=== PATIENT | male | born 1995 | race Caucasian/White ===

== ENCOUNTER 2017-11-23 18:55 | Emergency (ER) | payer MEDICAID ==
[2017-11-23 19:05] VITALS: BP 128/72
--- NOTE | 2017-11-23 19:54 | ER Document Report ---
HPI - HPI Patient complains to provider of: groin rash Pain Level: Denies Context: Patient is a 22-year-old male comes emergency department for chief complaint of a rash on his groin area. He states he noticed it while shaving. He denies dysuria, discharge, other locations of rash, fever or chills, or any other symptoms. He did have unprotected intercourse within the past several weeks. Patient denies that the rash is itchy or painful, it is asymptomatic. Past Medical History - General Information source: Patient - Social History Smoking Status: Never Smoker Lives with: Alone Family History: Reviewed & Not Pertinent - Medical History Medical History: Negative Surgical Hx: Negative - Immunizations Immunizations up to date: Yes Hx Diphtheria, Pertussis, Tetanus Vaccination: Yes Vertical Provider Document - CONSTITUTIONAL General Appearance: WD/WN, No Apparent Distress - INFECTION CONTROL TRAVEL OUTSIDE OF THE [place] IN LAST 30 DAYS: No - HEENT HEENT: Atraumatic, Normocephalic - NECK Neck: Normal Inspection - RESPIRATORY Respiratory: Breath Sounds Normal, No Respiratory Distress - CARDIOVASCULAR Cardiovascular: Regular Rate, Regular Rhythm - GI/ABDOMEN Gastrointestinal: Abdomen Soft, Abdomen Non-Tender - REPRODUCTIVE Male Genitalia: Normal Inspection - No rash over the genitals, no swelling, no tenderness, no discharge, no wounds - BACK Back: Normal Inspection - DERM Integumentary: Rash - Scattered papular pinkish umbilicated lesions over the groin area and lower abdomen, small area of excoriation, no induration, fluctuance, or other abnormality noted Course - Re-evaluation Re-evalutation: Patient with an unremarkable genital exam except for a rash of the groin which is consistent with molluscum contagiosum. I discussed this with patient, advised that this would most likely resolve in time especially since it is a mild case, patient requesting treatment for this. Provided with treatment, referred to dermatology. 11/24/17 Patient was going to be checked for gonorrhea and Chlamydia on request, he was supposed to leave a urine specimen before discharge and then was going to be called with the results. I checked back and found that there was no pending results, lab did not have a urine to perform this with, patient had already been discharged, I tried calling patient at the contact number he left and he did not answer. Very low suspicion of gonorrhea chlamydia based on his examination and symptoms. - Vital Signs Vital signs: Temp Pulse Resp BP Pulse Ox 98.5 F 90 16 128/72 H 100 11/23/17 19:04 11/23/17 19:04 11/23/17 19:04 11/23/17 19:04 11/23/17 19:04 Discharge - Discharge Clinical Impression: Rash Condition: Stable Disposition: HOME, SELF-CARE Additional Instructions: Your examination is consistent with molluscum contagiosum, this is a viral rash/ reaction, this usually fades gradually over time. This can be treated with the prescribed medication as well. Follow-up with dermatology for additional management if desired. See referral. Return to the emergency department for any concerning or worsening symptoms including pain, spreading rash, fever, or any other concerning or worsening symptoms. Prescriptions: Podofilox [Condylox] 3.5 ml TP ASDIR PRN #1 bottle PRN Reason: Referrals: TREVA CORADO DO [ACTIVE STAFF] - Follow up as needed
== END 2017-11-23 20:09 | disposition home or self-care (01) ==
LOC: ER 18:55
DX: R21 Rash and other nonspecific skin eruption (principal)
CPT/HCPCS: 99283

== ENCOUNTER 2018-02-09 14:28 | Emergency (ER) | payer SELFPAY ==
[2018-02-09 14:37] VITALS: BP 135/66
--- NOTE | 2018-02-09 15:07 | ER Document Report ---
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 Patient states his lesions began when he shaved his pubic hair. He states in the past that when he was treated for condyloma, the lesions never really went away. He denies any pain. He denies any ulcerations. He denies any penile discharge. 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 TRAVEL OUTSIDE OF THE [place] IN LAST 30 DAYS: No - HPI Onset: Last week Onset/Duration: Gradual Quality of pain: No pain Severity: None Pain Level: Denies Associated Symptoms: denies: Chest pain, Fever, Shortness of breath Exacerbated by: Denies Relieved by: Denies Similar symptoms previously: Yes Recently seen / treated by doctor: Yes - Related Data Smoking: Non-smoker Frequency of alcohol use: None Drug Abuse: None Allergies/Adverse Reactions: Penicillins Allergy (Verified 02/09/18 14:31) Past Medical History - General Information source: Patient - Social History Cigarette use (# per day): No Chew tobacco use (# tins/day): No Frequency of alcohol use: None Drug Abuse: None Lives with: Family Family history: None - Medical History Medical History: Negative Renal/ Medical History: Denies: Hx Peritoneal Dialysis Surgical Hx: Negative - Immunizations Immunizations up to date: Yes Hx Diphtheria, Pertussis, Tetanus Vaccination: Yes Review of Systems - Review of Systems Constitutional: denies: Chills, Fever EENT: No symptoms reported Cardiovascular: No symptoms reported Respiratory: No symptoms reported Gastrointestinal: No symptoms reported Genitourinary: No symptoms reported Male Genitourinary: See HPI Musculoskeletal: No symptoms reported Skin: No symptoms reported Hematologic/Lymphatic: No symptoms reported Neurological/Psychological: No symptoms reported Physical Exam - Vital signs Vitals: Temp Pulse Resp BP Pulse Ox 98.8 F 84 20 135/66 H 100 02/09/18 14:35 02/09/18 14:35 02/09/18 14:35 02/09/18 14:35 02/09/18 14:35 Notes: Physical exam: GENERAL: A 2-year-old man, alert and oriented 3, no acute distress HEAD: Atraumatic, normocephalic. EYES: Pupils equal round and reactive to light, extraocular movements intact, sclera anicteric, conjunctiva are normal. ENT: TMs normal, nares patent, oropharynx clear without exudates. Moist mucous membranes. NECK: Normal range of motion, supple LUNGS: Breath sounds clear to auscultation bilaterally and equal. No wheezes rales or rhonchi. ABDOMEN: Soft, normoactive bowel sounds. No tenderness to palpation. No guarding, no rebound. No masses appreciated. Genitalia: Patient has multiple follicular type lesions in the suprapubic area at the base of hair follicles. He has a few areas on the base of the penis. There is no condylomatous lesions per se. There is no ulcerations. Testes 2 were normal. EXTREMITIES: Normal range of motion, no pitting or edema. No clubbing or cyanosis. NEUROLOGICAL: Cranial nerves II through XII grossly intact. Normal speech, moving all extremities. PSYCH: Normal mood, normal affect. SKIN: Warm, Dry, normal turgor, no rashes or lesions noted. Course - Vital Signs Vital signs: Temp Pulse Resp BP Pulse Ox 98.8 F 84 20 135/66 H 100 02/09/18 14:35 02/09/18 14:35 02/09/18 14:35 02/09/18 14:35 02/09/18 14:35 Doctor's Discharge - Discharge Clinical Impression: Folliculitis Condition: Stable Disposition: HOME, SELF-CARE Additional Instructions: As we discussed, a urine test for STD was sent today it will take several hours to come back. We will call you if it turns positive. You can always call the ER for the results at [phone] and you can inquire about the lab results. The ER always calls when there is an blood test (i.e. positive). They usually will not call back when it is normal. Otherwise, take the antibiotics as prescribed. You could try [employer] which is a website that has discounted antibiotics from local pharmacies. I would also follow-up with the health department which is a good resource for penile lesions. Prescriptions: Doxycycline Hyclate 100 mg PO BID #20 capsule Referrals: [facility] [NO LOCAL MD] - Follow up as needed
[2018-02-09 17:10] LABS: CHLAM PCR NOT DETECTED (NOT DETECT); GON PCR NOT DETECTED (NOT DETECT)
== END 2018-02-09 15:21 | disposition home or self-care (01) ==
LOC: ER 14:28
DX: L73.9 Follicular disorder, unspecified (principal); Z88.0 Allergy status to penicillin
CPT/HCPCS: 87491; 87591; 99283

== ENCOUNTER 2018-03-06 11:38 | Emergency (ER) | payer SELFPAY ==
[2018-03-06 11:43] VITALS: BP 127/72
--- NOTE | 2018-03-06 12:48 | ER Document Report ---
ED Skin Rash/Insect Bite/Abscs - General Chief Complaint: Rash Stated Complaint: RASH Time Seen by Provider: 03/06/18 12:43 Mode of Arrival: Ambulatory Information source: Patient Notes: 22-year-old male presents to ED for complaint of rash to bilateral palms which he states he used a glove with powders about 4-5 days ago and now he has these small craters in the creases of both palms. He states they do not usually do not burn they are not painful they just bothered him the fact that they are there. He states he has looked up online and is contacted us several groups and they have told him all of these medications that he should take for this condition. Patient is alert and oriented respirations regular and unlabored speaking in full sentences walking with a even steady gait. TRAVEL OUTSIDE OF THE [place] IN LAST 30 DAYS: No - HPI Patient complains to provider of: Other - States he has "great" in the creases of his palms Onset: Other - Last week Onset/Duration: Gradual Quality of pain: No pain Severity: None Pain Level: Denies Skin Character: Other - Small craters in the creases of his palms Quality of rash: No: Itchy, Painful, Burning Identify cause: Yes Exacerbated by: Denies Relieved by: Denies Similar symptoms previously: Yes Recently seen / treated by doctor: No - Related Data Allergies/Adverse Reactions: Penicillins Allergy (Verified 03/06/18 11:39) Past Medical History - General Information source: Patient - Social History Smoking Status: Current Every Day Smoker Cigarette use (# per day): Yes - 4 cigarettes a day plus vapor cigarettes Chew tobacco use (# tins/day): No Smoking Education Provided: Yes - 4 minutes Frequency of alcohol use: Social Drug Abuse: None Occupation: [employer] Family History: Reviewed & Not Pertinent Patient has suicidal ideation: No Patient has homicidal ideation: No - Past Medical History Cardiac Medical History: Reports: Other - [place] Pulmonary Medical History: Reports: None EENT Medical History: Reports: None Neurological Medical History: Reports: None Endocrine Medical History: Reports: None Renal/ Medical History: Reports: None Malignancy Medical History: Reports None GI Medical History: Reports: None Musculoskeltal Medical History: Reports None Skin Medical History: Reports None Psychiatric Medical History: Reports: None Traumatic Medical History: Reports: None Infectious Medical History: Reports: None Surgical Hx: Negative Past Surgical History: Reports: None - Immunizations Immunizations up to date: Yes Hx Diphtheria, Pertussis, Tetanus Vaccination: Yes Review of Systems - Review of Systems Constitutional: No symptoms reported EENT: No symptoms reported Cardiovascular: No symptoms reported Respiratory: No symptoms reported Gastrointestinal: No symptoms reported Genitourinary: No symptoms reported Male Genitourinary: No symptoms reported Musculoskeletal: No symptoms reported Skin: No symptoms reported Hematologic/Lymphatic: No symptoms reported Neurological/Psychological: No symptoms reported -: Yes All other systems reviewed and negative Physical Exam - Vital signs Vitals: Temp Pulse Resp BP Pulse Ox 98.6 F 81 16 127/72 H 100 03/06/18 11:42 03/06/18 11:42 03/06/18 11:42 03/06/18 11:42 03/06/18 11:42 Interpretation: Normal - General General appearance: Appears well, Alert - HEENT Head: Normocephalic, Atraumatic Eyes: Normal Pupils: PERRL - Respiratory Respiratory status: No respiratory distress Chest status: Nontender Breath sounds: Normal Chest palpation: Normal - Cardiovascular Rhythm: Regular Heart sounds: Normal auscultation Murmur: No - Abdominal Inspection: Normal Distension: No distension Bowel sounds: Normal Tenderness: Nontender Organomegaly: No organomegaly - Back Back: Normal, Nontender - Extremities General upper extremity: Normal inspection, Nontender, Normal color, Normal ROM , Normal temperature General lower extremity: Normal inspection, Nontender, Normal color, Normal ROM , Normal temperature, Normal weight bearing. No: Cassie's sign - Neurological Neuro grossly intact: Yes Cognition: Normal Orientation: AAOx4 [place] Coma Scale Eye Opening: Spontaneous [place] Coma Scale Verbal: Oriented [place] Coma Scale Motor: Obeys Commands [place] Coma Scale Total: 15 Speech: Normal Motor strength normal: LUE, RUE, LLE, RLE Sensory: Normal - Psychological Associated symptoms: Normal affect, Normal mood - Skin Skin Temperature: Warm Skin Moisture: Dry Skin Color: Normal Location of irregularity: Other - Patient states there "craters "in the creases of his palm. There are no redness no rashes no craters no bumps no lumps nothing visible on the palm of his hand. Course - Re-evaluation Re-evalutation: 03/06/18 19:08 Patient was instructed to follow-up with dermatology or his primary doctor for his "craters" the palm of his hand. I do not see any created bumps lumps rashes anything to his palm. He was instructed to use Benadryl if it starts to itch or Tylenol or Motrin if it starts to hurt. He denies any pain or itching or burning at this time. - Vital Signs Vital signs: Temp Pulse Resp BP Pulse Ox 98.6 F 81 16 127/72 H 100 03/06/18 11:42 03/06/18 11:42 03/06/18 11:42 03/06/18 11:42 03/06/18 11:42 Discharge - Discharge Clinical Impression: concerned about spots on his hands Condition: Stable Disposition: HOME, SELF-CARE Additional Instructions: You were seen today for spots on your hands. You deny any pain or itching or any other symptoms except there are spots along the creases of your hand. You states you have been buying creams that you found online to control the spots that you have no discomfort. Please use an antibacterial soap and follow-up with a hedis analyst to get proper treatment for these spots. FOLLOW-UP CARE: If you have been referred to a physician for follow-up care, call the physician s office for an appointment as you were instructed or within the next two days. If you experience worsening or a significant change in your symptoms, notify the physician immediately or return to the Emergency Department at any time for re-evaluation. [facility] [address] [facility] Closed today [facility] [address] [employer] review [address] [facility] [address] Woodall Forms: Elevated Blood Pressure, Smoking Cessation Education
== END 2018-03-06 12:51 | disposition home or self-care (01) ==
LOC: ER 11:38
DX: Z04.8 Encounter for examination and observation for other specified reasons (principal); Z88.0 Allergy status to penicillin; F17.210 Nicotine dependence, cigarettes, uncomplicated; F17.290 Nicotine dependence, other tobacco product, uncomplicated; Z71.6 Tobacco abuse counseling
CPT/HCPCS: 99282

== ENCOUNTER 2018-08-01 10:14 | Emergency (ER) | payer SELFPAY ==
[2018-08-01 10:22] VITALS: BP 120/66
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
[2018-08-01] MEDS ORDERED: DEXAMETHASONE SOD PHOS INJ 10 MG/1 ML VIAL IM ONE (10:39)
[2018-08-01] MEDS ORDERED: DEXAMETHASONE CONC 1 MG/ML SOLN PO ONE (10:48)
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
== END 2018-08-01 11:20 | disposition home or self-care (01) ==
LOC: ER 10:14
DX: J04.0 Acute laryngitis (principal); J02.9 Acute pharyngitis, unspecified; F17.200 Nicotine dependence, unspecified, uncomplicated
CPT/HCPCS: 99283; 87070; 87880; J8540

== ENCOUNTER 2020-01-06 12:52 | Emergency (ER) | payer SELFPAY ==
--- NOTE | 2020-01-06 13:07 | ER Document Report ---
HPI - HPI Time Seen by Provider: 01/06/20 12:59 Pain Level: 1 Notes: 24-year-old male presents emergency room complaints of itching and a rash to his bilateral forearms and mouth after being exposed to poison sonu yesterday. Patient has a history of allergy to poison sonu. Has not tried any [id number] medications. Worse with time, nothing makes better. Denies fevers, chills, chest pain,palpitations, shortness of breath, dyspnea, nausea, vomiting, diarrhea, abdominal pain, hematuria,blurred vision, double vision, loss of vision, speech changes, LH, dizziness, syncope, headaches, wheezing, ST, URI, neck pain, weakness, bowel or bladder dysfunction, saddle anesthesia, numbness or tingling in bilateral upper or lower extremities equally, muscle paralysis, weakness in bilateral upper or lower extremities equally. REVIEW OF SYSTEMS:reviewed vital signs by RN CONSTITUTIONAL : Denies fever, chills, or sweats. Denies recent illness. EENT: Denies eye, ear, throat, or mouth pain or symptoms. Denies nasal or sinus congestion or discharge. Denies throat, tongue, or mouth swelling or difficulty swallowing. CARDIOVASCULAR: Denies chest pain. Denies palpitations or racing or irregular heart beat. Denies ankle edema. RESPIRATORY: Denies cough, cold, or chest congestion. Denies shortness of breath, difficulty breathing, or wheezing. GASTROINTESTINAL: Denies abdominal pain or distention. Denies nausea, vomiting, or diarrhea. Denies blood in vomitus, stools, or per rectum. Denies black, tarry stools. Denies constipation. GENITOURINARY: Denies difficulty urinating, painful urination, burning, frequency, blood in urine, or discharge. MUSCULOSKELETAL: Denies back or neck pain or stiffness. Denies joint pain or swelling. SKIN:reports itchy rash HEMATOLOGIC : Denies easy bruising or bleeding. LYMPHATIC: Denies swollen, enlarged glands. NEUROLOGICAL: Denies confusion or altered mental status. Denies passing out or loss of consciousness. Denies dizziness or lightheadedness. Denies headache. Denies weakness or paralysis or loss of use of either side. Denies problems with gait or speech. Denies sensory loss, numbness, or tingling. Denies seizures. PSYCHIATRIC: Denies anxiety or stress. Denies depression, suicidal ideation, or homicidal ideation. ALL OTHER SYSTEMS REVIEWED AND NEGATIVE. Dictation was performed using [employer] voice recognition software PHYSICAL EXAMINATION: GENERAL: Well-appearing, well-nourished and in no acute distress. HEAD: Atraumatic, normocephalic. EYES: Pupils equal round and reactive to light, extraocular movements intact, sclera anicteric, conjunctiva are normal. ENT: Nares patent, oropharynx clear without exudates. Moist mucous membranes. Uvula midline. NECK: Normal range of motion, supple without lymphadenopathy LUNGS: Breath sounds clear to auscultation bilaterally and equal. No wheezes rales or rhonchi. HEART: Regular rate and rhythm without murmurs ABDOMEN: Soft, nontender, nondistended abdomen. No guarding, no rebound. No masses appreciated. Musculoskeletal: Normal range of motion, no pitting or edema. No cyanosis. NEUROLOGICAL: Cranial nerves grossly intact. Normal speech, normal gait. Normal sensory, motor exams PSYCH: Normal mood, normal affect. SKIN: Warm, Dry, normal turgor, no rashes or lesions noted. Healing papular rash to bilateral forearms and leaf-like pattern with bulla, no linear pattern burrowing noted. No rash noted to mouth or face. - CONSTITUTIONAL Constitutional: DENIES: Fever, Chills - REPRODUCTIVE Reproductive: DENIES: : Past Medical History - Social History Smoking Status: Unknown if Ever Smoked Frequency of alcohol use: None Drug Abuse: None Family History: Reviewed & Not Pertinent Patient has homicidal ideation: No Neurological Medical History: Reports: Hx Seizures Renal/ Medical History: Denies: Hx Peritoneal Dialysis - Immunizations Immunizations up to date: Yes Hx Diphtheria, Pertussis, Tetanus Vaccination: Yes Vertical Provider Document - CONSTITUTIONAL Agree With Documented VS: Yes Exam Limitations: No Limitations General Appearance: WD/WN - INFECTION CONTROL TRAVEL OUTSIDE OF THE [place] IN LAST 30 DAYS: No Course - Re-evaluation Re-evalutation: 01/06/20 13:06 I have reevaluated this patient multiple times and no significant life threatening changes, no signs of toxicity, sepsis or peritonitis are noted. The patient and I have discussed the diagnosis and risks, and we agree with discharging home and close follow-up. We also discussed returning to the Emergency Department immediately if new or worsening symptoms occur with the understanding that symptoms and presentations can change. At this time will discharge with return precautions and follow-up recommendations. Verbal discharge instructions given a the bedside and opportunity for questions given. We have discussed the symptoms which are most concerning (e.g., saddle anesthesia, urinary or bowel incontinence or retention, changing or worsening pain) that necessitate immediate return. Medication warnings reviewed. All questions and concerns answered by this provider. Patient is in agreement with this plan and has verbalized understanding of return precautions and the need for primary care follow-up in the next 24-72 hours. Patient verbalized understanding of plan of care and agree with plan of care. - Vital Signs Vital signs: Temp Pulse Resp BP Pulse Ox 98.8 F 01/06/20 12:56 Discharge - Discharge Clinical Impression: Poison sonu dermatitis Condition: Stable Disposition: HOME, SELF-CARE Instructions: Contact Dermatitis ([facility]), Topical Steroid Cream or Ointment ([facility]), Corticosteroid Medication ([facility]) Additional Instructions: Medications as prescribed. Do not itch rash. Wash with soap and water. Follow-up with primary care provider for reevaluation within 24 to 48 hours. Return immediately for any new or worsening symptoms. Follow up with primary care provider, call tomorrow to make followup appointment. Prescriptions: Triamcinolone Acetonide [Aristocort 0.025% Cream] 1 applic TP BID #30 gram Prednisone [Deltasone 20 mg Tablet] 3 tab PO DAILY 5 Days #15 tablet Referrals: FLAQUITO CHÁVEZ MD [Primary Care Provider] - Follow up as needed
== END 2020-01-06 13:07 | disposition home or self-care (01) ==
LOC: ER 12:52
DX: L23.7 Allergic contact dermatitis due to plants, except food (principal)
CPT/HCPCS: 99282